=== PATIENT | female | born 1935 | race Caucasian/White ===

== ENCOUNTER 2016-12-07 19:05 | Emergency (ER) | payer MEDICARE, OTHER ==
[2016-12-07 18:25] LABS: ALLENS TEST Pos; BE (BASE EXCESS) 7.2 MEQ/L (0 +/- 2.5); HCO3 (ACTUAL BICARBONATE) 32.1 MEQ/L (23-27); INSTRUMENT SERIAL # 8087; PCO2 (CO2 TENSION) 46 MMHG (35-45); PO2 (O2 TENSION) 55 MMHG (79-93); SAMPLE Arterial; pH 7.46 (7.37-7.43)
[2016-12-07 18:37] LABS: BASOPHILS 0.2 %; BASOPHILS ABSOLUTE 0.02 10/3/uL (0.0-0.16); EOSINOPHILS 1.9 %; HEMATOCRIT 37.2 % (36.0-48.0); HEMOGLOBIN 11.3 g/dL (12.0-16.0); IMMATURE GRANULOCYTES 0.2 %; IMMATURE GRANULOCYTES ABSOLUTE 0.02 10/3/uL (0.0-0.11); LYMPHOCYTES 11.3 %; LYMPHOCYTES ABSOLUTE 1.19 10/3/uL (0.67-4.30); MEAN CORPUS HGB CONC 30.4 g/dL (32.0-36.0); MEAN CORPUSCULAR HEMOGLOB 21.7 pg (26.0-34.0); MEAN CORPUSCULAR VOLUME 71.5 fL (80-100); MEAN PLATELET VOLUME 8.8 fL (9.2-13.0); MONOCYTES 8.6 %; MONOCYTES ABSOLUTE 0.91 10/3/uL (0.21-1.20); NEUTROPHILS 77.8 %; NEUTROPHILS ABSOLUTE 8.23 10/3/uL (2.02-8.40); PLATELET COUNT 232 10/3/uL (150-400); RBC DISTRIBUTION WIDTH 18.5 % (12.0-16.0)
[2016-12-07 18:43] LABS: INTERNATIONAL NORMAL RATI 1.1 UNITS (-); PARTIAL THROMBO TIME 24.8 SEC (22.5-37.2); PROTIME (NOT ORD) 14.1 SEC (12.0-14.5)
[2016-12-07 18:44] LABS: ER CBC TAT 0 Hrs 13 Mins; MANUAL DIFF NO %; WHITE BLOOD CELLS 10.6 10/3/uL (4.5-10.5)
[2016-12-07 18:50] LABS: BUN (BLOOD UREA NITROGEN) 19 MG/DL (6-23); CHEST PAIN PROFILE TAT 0 Hrs 19 Mins; CHLORIDE, SERUM 102 MMOL/L (96-112); CO2 (CARBON DIOXIDE) 33 MMOL/L (24-34); CREATININE 0.97 MG/DL (0.55-1.02); GFR AFRICAN AMERICAN 63 ML/MIN (>=60); GFR NON AFRICAN AMERICAN 54 ML/MIN (>=60); POTASSIUM, SERUM 4.3 MMOL/L (3.5-5.3); SODIUM, SERUM 139 MMOL/L (135-148); TROPONIN I 0.04 NG/ML (<0.05)
[2016-12-07 18:52] LABS: GLUCOSE, SERUM 126 MG/DL (60-99)
[2016-12-07 19:01] LABS: ANISOCYTOSIS 1+ (5-10/OIF) (0-5/OIF); ELLIPTOCYTES 1+ (3-10/OIF) (0-2/OIF); PLATELET ESTIMATE ADQ (ADEQUATE)
[~2016-12-07 19:05] MED LIST: ACET500CAP PO; ARICEPT10 MG PO; ARICEPT10 PO; ARICEPT5 PO; ASAB PO; AT10 PO; ATV1 PO; BACDS PO; BISR PR; BUM2 PO; CEFT5 PO; CRESTOR20 MG PO; DCN100 PO; ENDOCET1 TAB PO; FENOGLIDE120 MG PO; FESO4UDL PO; FISH OIL1200 MG PO; FISH-EPA1000 MG PO; FLONASE NAS; FLORASTOR250 MG PO; FLUCON1 PO; GINKGO BILOB30 M1 PO; GLUCOSE; GLUCOTROL5 PO; GLUCPH PO; GLUCXL5 PO; H5P IM; HALF81 PO; HYDROXYZINE HCL PO; KLOR-CON M2020 MEQ PO; KLOR-CON20 MEQ PO; L40 PO; LEVAQUIN750 MG PO; LEVEMFLXPN SC; LEVEMIR SC; LEVOTHROID88 MCG PO; LEVOTHYROXIN88 MCG PO; LIPITOR40 PO; LISINOPRIL40 MG PO; LOFIBRA134 MG PO; MAX1 IM; MELATONIN5 M1 PO; MIRALAXPKT PO; MONISTAT 34 % VA; MONUROL POWDER 33 GM PO; MVIUDL PO; NAMENDA10 MG PO; NEXIUM40 PO; NORV10 PO; NORV25 PO; NYSTOP100000 MG TOP; OTC EYE DROP OPH; P20 PO; PREVAGEN PO; PRILO PO; PRIN10 PO; PROVIGIL2 PO; PYR200 PO; SEPTRA DS1 TAB PO; SEROQUEL50 MG PO; SYMBICORT INH; SYN88 PO; T PO; TESS; TRAZ100 PO; TRAZ50 PO; TRICOR145 PO; TRILIPIX135 MG PO; V2 PO; VICODINTAB PO; VITAMIN D31000 UNIT PO; X25 PO; X5 PO; XARELTO20 MG PO; XOPENEX HFA INH; ZETIA PO; ZOFRAN4 PO; ZYP5 PO; [UNRECOGNIZED DRUG - OTHER] PO; [UNRECOGNIZED DRUG - OTHER] PO
[2016-12-08] MEDS ORDERED: LEVEMFLXPN SC (23:44)
[2016-12-08] MEDS ORDERED: MELATONIN10 M2 PO (23:44)
[2016-12-08] MEDS ORDERED: MONODOX100 MG PO (23:45)
[2016-12-08] MEDS ORDERED: TRAZ100 PO (23:45)
[2016-12-08] MEDS ORDERED: AT10 PO (23:45)
[2016-12-08] MEDS ORDERED: TRILIPIX135 MG PO (23:45)
[2016-12-08] MEDS ORDERED: ATV.5 PO (23:46)
[2016-12-08] MEDS ORDERED: SYN88 PO (23:46)
[2016-12-08] MEDS ORDERED: PRILO PO (23:46)
[2016-12-08] MEDS ORDERED: NAMENDA10 MG PO (23:46)
[2016-12-08] MEDS ORDERED: L40 PO (23:46)
[2016-12-08] MEDS ORDERED: ARICEPT10 PO (23:47)
[2016-12-08] MEDS ORDERED: ADVAIR250 INH (23:47)
[2016-12-08] MEDS ORDERED: LIPITOR40 PO (23:47)
[2016-12-08] MEDS ORDERED: NORV10 PO (23:47)
[2016-12-08] MEDS ORDERED: GLUCOTROL5 PO (23:48)
[2016-12-08] MEDS ORDERED: ASAB PO (23:48)
== END 2016-12-07 19:54 | disposition home or self-care (01) ==
LOC: ER 19:05
PROVIDERS: Specialist
DX: J96.91 Respiratory failure, unspecified with hypoxia (principal); J44.9 Chronic obstructive pulmonary disease, unspecified; J40 Bronchitis, not specified as acute or chronic; Z87.891 Personal history of nicotine dependence; I10 Essential (primary) hypertension; G47.30 Sleep apnea, unspecified; Z86.73 Personal history of transient ischemic attack (TIA), and cerebral infarction without residual deficits; F03.90 Unspecified dementia, unspecified severity, without behavioral disturbance, psychotic disturbance, mood disturbance, and anxiety; E11.9 Type 2 diabetes mellitus without complications; D64.9 Anemia, unspecified; Z90.710 Acquired absence of both cervix and uterus; Z88.6 Allergy status to analgesic agent; Z88.0 Allergy status to penicillin; Z79.899 Other long term (current) drug therapy; Z79.84 Long term (current) use of oral hypoglycemic drugs; Z79.82 Long term (current) use of aspirin; Z79.4 Long term (current) use of insulin; Z79.52 Long term (current) use of systemic steroids
CPT/HCPCS: 36600; 71010; 80048; 82805; 83735; 83880; 84484; 85025; 85610; 85730; 93005; 94640; 96374; 99285; A9270-GY; J2920

== ENCOUNTER 2016-12-08 22:28 | Inpatient (IN) | payer MEDICARE, OTHER ==
--- NOTE | ~2016-12-08 | DS ---
Discharge Summary [facility] [address] [place]. [address] NAME: JOSE MARTIN STEVENS : 31 STATUS : ADM IN PAT#: [id number] AGE: 81 ADM/REG DATE : 12/09/16 MR#: [id number] REPORT SERV DATE: 12/21/16 DICTATED BY: Josemanuel LANDRY DATE: 12/21/16 REPORT STATUS : Draft TRANSCRIBED BY: MODL DATE: 12/21/16 ADMISSION DATE: 12/09/2016 DISCHARGE DATE: 12/21/2016 INTERIM SUMMARY DATE: 12/15/2016. COMPLETION SUMMARY DATE: 12/21/2016. DIAGNOSES AT TIME OF DISCHARGE: Acute on chronic respiratory failure with hypoxia and hypercapnia, suspected sleep apnea, suspected chronic obstructive pulmonary disease, advanced dementia, metabolic encephalopathy, resolved, insulin-requiring diabetes. CONSULTS: Pulmonology. PROCEDURES: None HOSPITAL COURSE: Continuing on with hospital course starting 12/16/2016. Unfortunately, despite diligent effort from Case Management and Pulmonology, we were unable to get her qualified through Home Health for BiPAP at home. When presented with the options of jail facility care versus home with hospice, her would far rather have her home with hospice for ongoing care than to be in a facility, based on his recommendations and her being at her baseline both from a mental status standpoint and a respiratory standpoint, we will involve hospice [facility], which is his choiced entity and once arrangements are made, she will transition home with her in the care of [facility]. Please see discharge MAR for details. Further adjustments in medications to be made by [facility]. DICTATED BY: Josemanuel Landry M.D. [facility]/BENITO Josemanuel Landry M.D. / [id number] CC: Josemanuel Landry M.D.
--- NOTE | ~2016-12-08 | DS ---
Discharge Summary [facility] [address] [place]. [address] NAME: JOSE MARTIN STEVENS : 31 STATUS : ADM IN [facility]#: [id number] AGE: 81 ADM/REG DATE : 12/09/16 MR#: [id number] REPORT SERV DATE: 12/15/16 DICTATED BY: Josemanuel MARCOS DATE: 12/15/16 REPORT STATUS : Draft TRANSCRIBED BY: MODL DATE: 12/15/16 ADMISSION DATE: 12/09/2016 DISCHARGE DATE: 12/15/2016 INTERIM SUMMARY: Date 12/15/2016. DIAGNOSES AT TIME OF INTERIM SUMMARY: [id number] respiratory failure with hypoxia and hypercapnia, sleep apnea, suspected chronic obstructive pulmonary disease; metabolic encephalopathy, acute; suspected pneumonia, present on admission; type 2 diabetes, advanced dementia. CONSULTS: Pulmonology. PROCEDURES: None. BRIEF SUMMARY: An 81-year-old female patient with advanced dementia was admitted with acute- on-chronic respiratory failure to the intermediate care unit, requiring BiPAP support. does state the patient is a do not intubate. The patient was treated with aggressive bronchodilator therapy and aggressive pulmonary toilet. There was no clear indication of infection on admission. She did receive brief course of antimicrobial therapy, but when labs and cultures were unremarkable, antimicrobial therapy was discontinued. We did get Palliative Care to see the patient, because she essentially has two end-stage processes, one is her dementia, the second is her lung disease. was in favor of do not resuscitate order, but was not yet ready for hospice, preferring to go home with Home Health Care with BiPAP support. At the time of this dictation, we are doing an overnight oximetry study in hopes that we can clarify and approve her for home BiPAP therapy. If she is unable to have BiPAP support at home, some consideration should be revisited with regard to discharge home with hospice unless she will prefer her to be managed at the facility. At the present time, she requires BiPAP intermittently and has intermittent bouts of agitation that do respond to her current medical therapy. Pulmonary has been extremely helpful and continue to monitor the patient daily and we have had ongoing input from Palliative Care regarding care planning. Another member of the hospitalist team will manage her hospital care starting 12/16/2016 with comanagement from Pulmonary and input from Palliative Care. Again, tonight is an overnight oximetry study. PLAN: 1. Home with BiPAP therapy and home health care support. 2. Would be to revisit hospice care, BiPAP can not be approved for home use. DICTATED BY: Josemanuel Marcos M.D. [facility]/BENITO Discharge Summary [address] [address] NAME: JOSE MARTIN STEVENS : 33 STATUS : ADM IN PAT#: [id number] AGE: 81 ADM/REG DATE : 12/09/16 MR#: [id number] REPORT SERV DATE: 12/15/16 DICTATED BY: Josemanuel MARCOS DATE: 12/15/16 REPORT STATUS : Draft TRANSCRIBED BY: BENITO DATE: 12/15/16 Josemanuel Marcos M.D. / [id number] CC: Judit Rdz M.D.
--- NOTE | ~2016-12-08 | CN ---
Consultation Report [facility] [address] [place]. [address] NAME: JOSE MARTIN MATOS : 33 STATUS : ADM IN [facility]#: [id number] AGE: 81 ADM/REG DATE : 12/09/16 MR#: [id number] REPORT SERV DATE: 12/09/16 DICTATED BY: HAILE SERRANO IV DATE: 12/09/16 REPORT STATUS : Draft TRANSCRIBED BY: BENITO DATE: 12/09/16 PULMONARY CONSULTATION NOTE DATE OF CONSULTATION: 12/09/2016 Critical care time seen is 10 o'clock to 10:45, forty-five minutes. REASON FOR REQUEST: Hypoxemic hypercapnic respiratory failure, now on BiPAP continuously with marked agitation. HISTORY OF PRESENT ILLNESS: History was obtained from the records. I called the who was not available and I called the family members; however, all phones went to [employer]ak[employer]. A message was left to contact the unit. Ms. Matos is an 81-year-old female with a history of cerebrovascular disease, diastolic heart failure, dementia, diabetes mellitus, hypothyroidism, past atrial myxoma, past loculated parapneumonic effusion, obstructive sleep apnea, noncompliant with CPAP, clinical COPD, who was admitted with increasing shortness of breath for 48 to 72 hours with now agitation and increased shortness of breath and moved to the ICU. The patient has had several hospitalizations in the past, none since 2014. By the records, the patient had several days of increasing shortness of breath with a nonproductive cough. There was no reports of fevers, chills, sweats, hemoptysis, or chest pain. She presented to the emergency room where a CT angiogram was obtained which demonstrated no evidence for pulmonary embolism with evidence for basilar scarring, not significantly changed from the 2015 study. The patient had initiation of bronchodilator medications, however, became very agitated and wild. She was placed on BiPAP and moved to the [facility]. Currently, the patient had received Ativan and is sedated on BiPAP therapy and in no distress. PULMONARY HISTORY: Remarkable for no documented history of asthma, however with clinical COPD. She has had pneumonia in the past with a complicated parapneumonic effusion on the right. She is a "remote smoker" though the amount of cigarette consumption is not documented. Immunization status is also not documented. PAST MEDICAL HISTORY: Remarkable for history of: 1. Cerebrovascular disease. 2. Diastolic heart failure. 3. Dementia. 4. Diabetes mellitus. Hypothyroidism. 5. Past atrial myxoma, status post resection. 6. Right parapneumonic effusion status post decortication. 7. Obstructive sleep apnea, noncompliant with CPAP. 8. Clinical COPD. 9. Remote DVT. 10.Dysphagia. Consultation Report [facility] [address] [place]. [address] NAME: JOSE MARTIN MATOS : 33 STATUS : ADM IN [facility]#: [id number] AGE: 81 ADM/REG DATE : 12/09/16 MR#: [id number] REPORT SERV DATE: 12/09/16 DICTATED BY: HAILE SERRANO IV DATE: 12/09/16 REPORT STATUS : Draft TRANSCRIBED BY: BENITO DATE: 12/09/16 SURGERIES: 1. Removal of myxoma from the right atrium. 2. Hysterectomy. 3. PEG and tracheostomies, both reversed. 4. Left carpal tunnel release. 5. Bilateral breast implants. 6. Right inguinal herniorrhaphy repair. 7. Right thoracoscopy with decortication. 8. Right foot surgery. ALLERGIES AND INTOLERANCES: Include nonsteroidal anti-inflammatories and penicillin. CURRENT MEDICATIONS: The patient is on Aricept 10 mg daily; aspirin 81 mg daily; Atarax 10 mg twice a day; Ativan 0.5 mg every 8 hours; Desyrel 100 mg at bedtime; Dulera two puffs twice a day; DuoNebs every 6 hours, Glucotrol before meals, before breakfast and supper; Lasix 40 mg daily; Levemir 22 units at bedtime; Lipitor 40 mg daily; Lofibra 160 mg at bedtime; Lovenox 40 mg subcu daily; melatonin 9 mg at bedtime; Namenda 10 mg twice a day; Norvasc 10 mg daily; level 1 insulin sliding scale; Protonix 40 mg daily; Solu-Medrol 20 mg q.12 hours; Synthroid 88 mcg daily; and doxycycline 100 mg twice a day. SOCIAL HISTORY: Remarkable for some type of tobacco use as above. The patient does drink wine and by report, continues to drink wine "at times." There is no history of illicit drug use. She is , lives with her , has 3 children. FAMILY HISTORY: Remarkable for mother with unspecified heart disease with most family members unknown because they still live in [place]. REVIEW OF SYSTEMS: 14-systems reviewed and pertinent positives as noted above. PHYSICAL EXAMINATION: GENERAL: This is an obese, elderly female, currently sedated though agitated when stimulated. VITAL SIGNS: Blood pressure is 155/68, temperature 97.4, heart rate is 72, respiratory rate is 20, and saturation 100% on 40% BiPAP. HEENT: The patient is normocephalic, atraumatic. Pupils do react to light. Nose and mouth are not examined because she is on BiPAP. NECK: Without any palpable lymphadenopathy or thyromegaly. CHEST: The patient has bilateral coarse inspiratory and expiratory rhonchi with a prolonged expiratory phase. There are some basilar inspiratory crackles. No true wheezes are noted. She has a sternotomy scar. CARDIOVASCULAR: Jugular venous pulsations are difficult to elicit. She has 1+ carotid upstrokes. No obvious bruit. She has a very distant slow S1, S2 with no clear murmur or S3. There is overlying respiratory noise. Peripheral pulses are diminished. ABDOMEN: Morbidly obese. Soft. There are hypoactive bowel sounds. There is no palpable hepatosplenomegaly or masses. Surgical scars are noted. Consultation Report [address] [place]. [address] NAME: JOSE MARTIN MATOS : 33 STATUS : ADM IN [facility]#: [id number] AGE: 81 ADM/REG DATE : 12/09/16 MR#: [id number] REPORT SERV DATE: 12/09/16 DICTATED BY: HAILE SERRANO IV DATE: 12/09/16 REPORT STATUS : Draft TRANSCRIBED BY: BENITO DATE: 12/09/16 EXTREMITIES: Demonstrate 2+ pitting edema. There is no cyanosis, clubbing, or palpable cords. NEUROLOGIC: The patient is stimulated and moves all extremities though easily becomes agitated and tries to push one away. LABORATORY DATA: Chest CT scan demonstrates postsurgical changes of sternotomy. She has a prominent cardiac silhouette. She has bibasilar scarring/atelectasis that does not appear to be significantly different than the 2015 study. No clear new infiltrate is noted. CBC: Hemoglobin 11, hematocrit 35.4, platelet count was 237,000, and white blood cell count is 10.1. The MCV and MCH are both low. INR is 1.2, PTT is 23.6. Chemistry: Sodium is 133, potassium 4.8, chloride 98, bicarbonate 30, BUN 31, and creatinine 1.14. Glucose of 206. BNP is 201. Troponin is 0.05. The blood gas, pH 7.36, pCO2 of 51, and pO2 of 91 on BiPAP. ASSESSMENT AND PLAN: 1. Respiratory. The patient has clinical COPD with probable exacerbation. Solu-Medrol will be given 40 mg q.12 hours. DuoNebs will be given q.4 hours with albuterol q.2 hours as needed. Dulera will be changed to budesonide 1 mg twice a day and Brovana unit dose twice a day. Chest x-ray will be obtained tomorrow. She will be given breaks off tomorrow as clinically tolerated. Blood gas will be obtained in the morning. The rate on the BiPAP was decreased to 10. We will add warm humidification if available. 2. Infectious disease. Procalcitonin level will be added to blood in the lab. We will change the doxycycline to ceftriaxone and azithromycin. There is no obvious pneumonic infiltrate. 3. Neurologic. Precedex will be given for sedation which is less likely to cause delirium and agitation. Haldol will be given as needed for breakthrough. Ativan will be made as needed for breakthrough in addition to that. With the alcohol use, thiamine will be given 200 mg daily. B12 and ammonia level will be obtained. 4. Renal/electrolytes. Maintenance IV will be changed to normal saline with the hyponatremia. Baseline urine osmolality and urine sodium will be obtained. Phosphate level will be added to blood in the lab. We will watch the patient's creatinine. 5. Gastrointestinal. We will change Protonix to IV. Liver panel will be obtained. 6. Endocrinologic. Synthroid will be changed to IV. Thyroid functions will be obtained. Insulin sliding scale will be continued. Levemir per hospitalist. 7. Cardiovascular. All of her antihypertensives are p.o., so hydralazine will be given as needed for blood pressure greater than 160. 8. Hematologic. Iron studies will be obtained with the microcytic parameters. Stools will be sent for Hemoccult. Lovenox will be continued for deep vein thrombosis prophylaxis. Thank you for consulting us. We will follow the patient with you. Critical care time seen 45 minutes. Consultation Report [facility] [id number] [place]. [address] NAME: JOSE MARTIN MATOS : 33 STATUS : ADM IN [facility]#: [id number] AGE: 81 ADM/REG DATE : 12/09/16 MR#: [id number] REPORT SERV DATE: 12/09/16 DICTATED BY: HAILE SERRANO IV DATE: 12/09/16 REPORT STATUS : Draft TRANSCRIBED BY: BENITO DATE: 12/09/16 [facility]/BENITO Haile Serrano IV, M.D. / [id number] CC: Yun Cantu M.D.
--- NOTE | ~2016-12-08 | PUL ---
[facility] [address] [place]. [address] NAME: JOSE MARTIN STEVENS : 33 STATUS : ADM IN PAT#: [id number] AGE: 81 ADM/REG DATE : 12/09/16 MR#: [id number] REPORT SERV DATE: 12/17/16 DICTATED BY: SETH CONTRERAS DATE: 12/17/16 REPORT STATUS : Draft TRANSCRIBED BY: BENITO DATE: 12/17/16 PULMONARY FUNCTION TEST Overnight oximetry performed on 3 L nasal cannula. Total valid sampling time was 6 hours 32 minutes and 40 seconds. Saturations were less than 88% for 5 minutes and 8 seconds. INTERPRETATION: Abnormal oximetry report while on 3 L nasal cannula. Consider oxygen titration study or sleep study. Clinical correlation is recommended. [place]/BENITO Seth Contreras M.D. / [id number] CC: Judit Rdz M.D.
--- NOTE | ~2016-12-08 | HP ---
History And Physical [address] [place]. [address] NAME: JOSE MARTIN STEVENS : 33 STATUS : ADM IN PAT#: [id number] AGE: 81 ADM/REG DATE : 12/09/16 MR#: [id number] REPORT SERV DATE: 12/09/16 DICTATED BY: DAYANNA OLSON DATE: 12/09/16 REPORT STATUS : Draft TRANSCRIBED BY: BENITO DATE: 12/09/16 DATE OF ADMISSION: 12/09/2016 CHIEF COMPLAINT: An 81-year-old female, presenting with shortness of breath. HISTORY OF PRESENT ILLNESS: The patient's history was obtained through careful interview with the patient and coupled with review of [facility] medical records. The patient for about a week now has been having increasing shortness of breath characterized by dyspnea on exertion and a nonproductive cough. It has really progressed in the last two or three days. She describes orthopnea, paroxysmal nocturnal dyspnea, and sinus drainage. Then tonight the patient became "wild," agitated, confused, and was gasping for breath as well. No chest pain. No abdominal pain. No headache. No back pain. No pain complaints at all. No nausea or vomiting. No fevers or chills. REVIEW OF SYSTEMS: Otherwise, a 14-point review of systems was obtained and was negative. PAST MEDICAL HISTORY: 1. Pneumonia. 2. Stroke with right-sided encephalomalacia. 3. Obstructive sleep apnea, but not on CPAP. 4. DVT right upper extremity after a right humerus fracture. 5. Dementia. 6. Diastolic congestive heart failure. Negative catheterization of the heart in 2003. 7. Depression. 8. Diabetes. 9. Anemia. 10.Hypothyroidism. 11.Pelvic fracture. 12.A loculated right effusion in 2013 needing surgery. 13.Urinary tract infection with incontinence. 14.Dysphagia with PEG tube and then reversal by Dr. Christiansen. 15.Atrial myxoma status post surgery. PAST SURGICAL HISTORY: 1. Myxoma removed from the atrium in 2003. 2. Hysterectomy. 3. PEG tube and tracheostomy since reversed. 4. Left carpal tunnel release. History And Physical [address] [address] NAME: JOSE MARTIN STEVENS : 33 STATUS : ADM IN PAT#: [id number] AGE: 81 ADM/REG DATE : 12/09/16 MR#: [id number] REPORT SERV DATE: 12/09/16 DICTATED BY: DAYANNA OLSON DATE: 12/09/16 REPORT STATUS : Draft TRANSCRIBED BY: BENITO DATE: 12/09/16 5. Right inguinal hernia repair. 6. Right thoracoscopy with decortication in 2013. 7. Right foot surgery. ALLERGIES: NONSTEROIDAL ANTI-INFLAMMATORY DRUGS, PENICILLIN. SOCIAL HISTORY: Quit smoking remotely. Drinks about two to three glasses of wine a night at times. Has been to her for 60 years. She immigrated from [place] in 5, has three children. She is seen by home health care. FAMILY HISTORY: Mother with heart disease. CURRENT MEDICATIONS: 1. Norvasc 10 mg p.o. daily. 2. Aspirin 81 mg p.o. daily. 3. Lipitor 40 mg p.o. daily. 4. Aricept 10 mg p.o. daily. 5. Doxycycline 100 mg p.o. b.i.d. 6. Trilipix 135 mg p.o. daily. 7. Advair inhale twice a day. 8. Lasix 40 mg p.o. daily. 9. Glipizide 5 mg p.o. b.i.d. 10.Atarax 10 mg p.o. b.i.d. 11.Levemir 22 units subcutaneous at bedtime. 12.Synthroid 88 mcg p.o. daily. 13.Ativan 0.5 mg p.o. b.i.d. 14.Melatonin 10 mg p.o. daily at nighttime. 15.Namenda 10 mg p.o. b.i.d. 16.Prilosec 20 mg p.o. daily. 17.Trazodone 100 mg p.o. q.h.s. PHYSICAL EXAMINATION: VITAL SIGNS: Temperature 98.2, pulse 86, blood pressure 121/63, respiratory rate 40, and O2 saturation 65% on room air. GENERAL: An ill-appearing female, in evidence of distress secondary to anxiety and shortness of breath. HEENT: Pupils equal, round, and reactive to light. No conjunctival pallor. No scleral icterus. Nares are patent. Oropharynx is clear of obstruction. Moist mucous membranes. NECK: Trachea midline. No thyromegaly. LYMPH: No cervical lymphadenopathy. No supraclavicular lymphadenopathy. RESPIRATORY: The patient has scattered wheezes on exam. Scattered rhonchi. No rales. No focal egophony. The patient has a labored respiratory effort. CARDIOVASCULAR: Regular rate and rhythm. No murmurs, rubs, or gallops. No extremity edema is currently appreciated. ABDOMEN: Soft, nontender, and nondistended. Normal bowel sounds auscultated throughout. No hepatosplenomegaly. DERMATOLOGICAL: Warm and dry extremities. No pallor. No cyanosis. History And Physical [address] [place]. [address] NAME: JOSE MARTIN STEVENS : 31 STATUS : ADM IN [facility]#: [id number] AGE: 81 ADM/REG DATE : 12/09/16 MR#: [id number] REPORT SERV DATE: 12/09/16 DICTATED BY: DAYANNA OLSON DATE: 12/09/16 REPORT STATUS : Draft TRANSCRIBED BY: BENITO DATE: 12/09/16 PSYCHIATRIC: Normal affect. Good mood. Alert and oriented x3. LABORATORY DATA: White blood cell count 10.1, hemoglobin 11, hematocrit 35, and platelets 237. Sodium 133, potassium 4.8, chloride 98, bicarb 30, BUN 31, creatinine 1.14, and glucose 206. Troponin 0.05. INR 1.2. STUDIES: 1. Chest x-ray by my own evaluation shows atelectasis changes, cardiomegaly. 2. CT angiogram of the chest shows no pulmonary embolism, no infiltrate. ASSESSMENT AND PLAN: 1. Hypoxic respiratory failure. Place on BiPAP until noon today. Provide supportive care. Negative pulmonary embolism on CT angiogram of the chest. 2. Chronic obstructive pulmonary disease exacerbation. Place on IV Solu-Medrol, Duo nebulizers, doxycycline. 3. Dementia with agitation, p.r.n. and scheduled Ativan. 4. Diabetes. Check hemoglobin A1c. Place on sliding scale insulin. [place]BY/BENITO Dayanna Olson M.D. / [id number] CC: Judit Dangelo M.D.
[2016-12-08 23:03] LABS: BASOPHILS 0.1 %; BASOPHILS ABSOLUTE 0.01 10/3/uL (0.0-0.16); EOSINOPHILS 0.2 %; EOSINOPHILS ABSOLUTE 0.02 10/3/uL (0.0-0.53); ER CBC TAT 0 Hrs 03 Mins; HEMATOCRIT 35.4 % (36.0-48.0); IMMATURE GRANULOCYTES 0.1 %; IMMATURE GRANULOCYTES ABSOLUTE 0.01 10/3/uL (0.0-0.11); LYMPHOCYTES 7.9 %; LYMPHOCYTES ABSOLUTE 0.79 10/3/uL (0.67-4.30); MEAN CORPUS HGB CONC 31.1 g/dL (32.0-36.0); MEAN CORPUSCULAR HEMOGLOB 22.2 pg (26.0-34.0); MEAN CORPUSCULAR VOLUME 71.5 fL (80-100); MONOCYTES 8.6 %; MONOCYTES ABSOLUTE 0.86 10/3/uL (0.21-1.20); NEUTROPHILS 83.1 %; NEUTROPHILS ABSOLUTE 8.36 10/3/uL (2.02-8.40); PLATELET COUNT 237 10/3/uL (150-400); RBC DISTRIBUTION WIDTH 18.1 % (12.0-16.0); RED CELL COUNT 4.95 10/6/uL (4.0-5.6); WHITE BLOOD CELLS 10.1 10/3/uL (4.5-10.5)
[2016-12-08 23:04] LABS: MANUAL DIFF NO %
[2016-12-08 23:09] LABS: INTERNATIONAL NORMAL RATI 1.2 UNITS (-); PARTIAL THROMBO TIME 23.6 SEC (22.5-37.2); PROTIME (NOT ORD) 14.7 SEC (12.0-14.5)
[2016-12-08 23:20] LABS: CALCIUM, SERUM 8.7 MG/DL (8.5-10.4); CHLORIDE, SERUM 98 MMOL/L (96-112); CO2 (CARBON DIOXIDE) 30 MMOL/L (24-34); CREATININE 1.14 MG/DL (0.55-1.02); GFR AFRICAN AMERICAN 51 ML/MIN (>=60); GFR NON AFRICAN AMERICAN 44 ML/MIN (>=60); POTASSIUM, SERUM 4.8 MMOL/L (3.5-5.3); SODIUM, SERUM 133 MMOL/L (135-148)
[2016-12-08 23:21] LABS: BUN (BLOOD UREA NITROGEN) 31 MG/DL (6-23); CHEST PAIN PROFILE TAT 0 Hrs 21 Mins; GLUCOSE, SERUM 206 MG/DL (60-99); TROPONIN I 0.05 NG/ML (<0.05)
[2016-12-08] MEDS ORDERED: MELATONIN10 M2 PO (23:44)
[2016-12-08] MEDS ORDERED: LEVEMFLXPN SC (23:44)
[2016-12-08] MEDS ORDERED: TRILIPIX135 MG PO (23:45)
[2016-12-08] MEDS ORDERED: TRAZ100 PO (23:45)
[2016-12-08] MEDS ORDERED: MONODOX100 MG PO (23:45)
[2016-12-08] MEDS ORDERED: AT10 PO (23:45)
[2016-12-08] MEDS ORDERED: SYN88 PO (23:46)
[2016-12-08] MEDS ORDERED: PRILO PO (23:46)
[2016-12-08] MEDS ORDERED: NAMENDA10 MG PO (23:46)
[2016-12-08] MEDS ORDERED: ATV.5 PO (23:46)
[2016-12-08] MEDS ORDERED: L40 PO (23:46)
[2016-12-08] MEDS ORDERED: NORV10 PO (23:47)
[2016-12-08] MEDS ORDERED: LIPITOR40 PO (23:47)
[2016-12-08] MEDS ORDERED: ADVAIR250 INH (23:47)
[2016-12-08] MEDS ORDERED: ARICEPT10 PO (23:47)
[2016-12-08] MEDS ORDERED: GLUCOTROL5 PO (23:48)
[2016-12-08] MEDS ORDERED: ASAB PO (23:48)
[2016-12-09 02:10] LABS: ALLENS TEST Pos; BE (BASE EXCESS) 2.1 MEQ/L (0 +/- 2.5); BIPAP 15/5 cm.H2O; HCO3 (ACTUAL BICARBONATE) 28.6 MEQ/L (23-27); INSTRUMENT SERIAL # 8087; OPERATOR ID 17589; PCO2 (CO2 TENSION) 51 MMHG (35-45); PO2 (O2 TENSION) 91 MMHG (79-93); SAMPLE Arterial; pH 7.36 (7.37-7.43)
[2016-12-09 11:43] LABS: BASOPHILS 0 %; EOSINOPHILS 0 %; HEMATOCRIT 35.3 % (36.0-48.0); HEMOGLOBIN 10.8 g/dL (12.0-16.0); IMMATURE GRANULOCYTES 0.4 %; IMMATURE GRANULOCYTES ABSOLUTE 0.03 10/3/uL (0.0-0.11); LYMPHOCYTES 5.6 %; LYMPHOCYTES ABSOLUTE 0.42 10/3/uL (0.67-4.30); MANUAL DIFF NO %; MEAN CORPUS HGB CONC 30.6 g/dL (32.0-36.0); MEAN CORPUSCULAR HEMOGLOB 21.6 pg (26.0-34.0); MEAN CORPUSCULAR VOLUME 70.7 fL (80-100); MEAN PLATELET VOLUME 8.9 fL (9.2-13.0); MONOCYTES 1.1 %; MONOCYTES ABSOLUTE 0.08 10/3/uL (0.21-1.20); NEUTROPHILS 92.9 %; NEUTROPHILS ABSOLUTE 6.91 10/3/uL (2.02-8.40); PLATELET COUNT 197 10/3/uL (150-400); RBC DISTRIBUTION WIDTH 18.3 % (12.0-16.0); RED CELL COUNT 4.99 10/6/uL (4.0-5.6); WHITE BLOOD CELLS 7.4 10/3/uL (4.5-10.5)
[2016-12-09 12:12] LABS: ANISOCYTOSIS 1+ (5-10/OIF) (0-5/OIF); PLATELET ESTIMATE ADQ (ADEQUATE)
[2016-12-09 12:15] LABS: POLYCHROMASIA 1+ (2-5/OIF) (0-1/OIF)
[2016-12-09 12:16] LABS: OVALOCYTES 1+ (3-10/OIF) (0-2/OIF)
[2016-12-09 12:23] LABS: ALBUMIN 3.1 G/DL (3.5-5.0); ALKALINE PHOSPHATASE 32 U/L (45-117); BUN (BLOOD UREA NITROGEN) 28 MG/DL (6-23); CALCIUM, SERUM 8.8 MG/DL (8.5-10.4); CHLORIDE, SERUM 103 MMOL/L (96-112); CO2 (CARBON DIOXIDE) 32 MMOL/L (24-34); CREATININE 1.01 MG/DL (0.55-1.02); DIRECT BILIRUBIN 0.1 MG/DL (0.0-0.4); FREE T4 1.19 NG/DL (0.76-1.46); GFR AFRICAN AMERICAN 60 ML/MIN (>=60); GFR NON AFRICAN AMERICAN 51 ML/MIN (>=60); GLUCOSE, SERUM 173 MG/DL (60-99); INDIRECT BILIRUBIN(NOT ORDER) 0.7 MG/DL (0.1-0.9); IRON, SERUM 17 MCG/DL (35-150); POTASSIUM, SERUM 4.7 MMOL/L (3.5-5.3); SGOT(AST) 28 U/L (5-40); SGPT(ALT) 38 U/L (5-65); SODIUM, SERUM 139 MMOL/L (135-148); TOTAL PROTEIN 6.7 G/DL (6.0-8.5)
[2016-12-09 12:26] LABS: A/G RATIO 0.9 (0.7-1.9); GLOBULIN 3.6 G/DL (2.5-4.1); PHOSPHORUS, SERUM 3.4 MG/DL (2.5-4.5); TOTAL BILIRUBIN 0.8 MG/DL (0-1.2)
[2016-12-09 12:54] LABS: IRON BINDING CAPACITY 518 MCG/DL (225-410)
[2016-12-09 13:05] LABS: ULTRASENSITIVE TSH 0.801 MCIU/ML (0.358-3.740)
[2016-12-09 13:23] LABS: TROPONIN I 0.04 NG/ML (<0.05)
[2016-12-09 15:39] LABS: INTERNATIONAL NORMAL RATI 1.1 UNITS (-); PROTIME (NOT ORD) 14.5 SEC (12.0-14.5)
[2016-12-09 15:39] LABS: SODIUM, URINE 20 MEQ/L
[2016-12-09 15:42] LABS: PROCALCITONIN 0.08 ng/mL (<0.5)
[2016-12-09 15:45] LABS: OSMOLALITY, URINE 287 MOSM/KG (50-1200)
[2016-12-10 04:17] LABS: INSTRUMENT SERIAL # 8083; PCO2 (CO2 TENSION) 44 MMHG (35-45); PO2 (O2 TENSION) 91 MMHG (79-93)
[2016-12-10 04:18] LABS: ALLENS TEST Pos; BE (BASE EXCESS) 1.8 MEQ/L (0 +/- 2.5); BIPAP 16/6 cm.H2O; CARBOXYHEMOGLOBIN 0.9 % (0-3); HCO3 (ACTUAL BICARBONATE) 26.8 MEQ/L (23-27); HEMOBLOGIN CONTENT 11.5 G/DL (12-16); METHEMOGLOBIN 0.3 % (0-3); O2 CONTENT 15.6 VOL% (18-24); OPERATOR ID 32193; SAMPLE Arterial
[2016-12-10 07:12] LABS: BASOPHILS 0 %; EOSINOPHILS 0 %; HEMATOCRIT 35.8 % (36.0-48.0); HEMOGLOBIN 10.9 g/dL (12.0-16.0); IMMATURE GRANULOCYTES 0.1 %; IMMATURE GRANULOCYTES ABSOLUTE 0.01 10/3/uL (0.0-0.11); LYMPHOCYTES 6.9 %; LYMPHOCYTES ABSOLUTE 0.52 10/3/uL (0.67-4.30); MEAN CORPUS HGB CONC 30.4 g/dL (32.0-36.0); MEAN CORPUSCULAR HEMOGLOB 21.7 pg (26.0-34.0); MEAN CORPUSCULAR VOLUME 71.2 fL (80-100); MEAN PLATELET VOLUME 9.5 fL (9.2-13.0); MONOCYTES 4.7 %; MONOCYTES ABSOLUTE 0.35 10/3/uL (0.21-1.20); NEUTROPHILS 88.3 %; NEUTROPHILS ABSOLUTE 6.61 10/3/uL (2.02-8.40); PLATELET COUNT 199 10/3/uL (150-400); RBC DISTRIBUTION WIDTH 18.5 % (12.0-16.0); RED CELL COUNT 5.03 10/6/uL (4.0-5.6); WHITE BLOOD CELLS 7.5 10/3/uL (4.5-10.5)
[2016-12-10 07:22] LABS: MANUAL DIFF NO %
[2016-12-10 07:32] LABS: ALBUMIN 2.8 G/DL (3.5-5.0); BUN (BLOOD UREA NITROGEN) 25 MG/DL (6-23); CALCIUM, SERUM 8.8 MG/DL (8.5-10.4); CHLORIDE, SERUM 107 MMOL/L (96-112); CO2 (CARBON DIOXIDE) 29 MMOL/L (24-34); GFR AFRICAN AMERICAN 79 ML/MIN (>=60); GFR NON AFRICAN AMERICAN 68 ML/MIN (>=60); GLUCOSE, SERUM 188 MG/DL (60-99); PHOSPHORUS, SERUM 2.9 MG/DL (2.5-4.5); POTASSIUM, SERUM 4.3 MMOL/L (3.5-5.3); SODIUM, SERUM 143 MMOL/L (135-148)
[2016-12-10 07:40] LABS: ANISOCYTOSIS 1+ (5-10/OIF) (0-5/OIF); ELLIPTOCYTES 1+ (3-10/OIF) (0-2/OIF); PLATELET ESTIMATE ADQ (ADEQUATE)
[2016-12-11 04:45] LABS: BASOPHILS 0 %; EOSINOPHILS 0.1 %; EOSINOPHILS ABSOLUTE 0.01 10/3/uL (0.0-0.53); HEMATOCRIT 35.1 % (36.0-48.0); HEMOGLOBIN 10.8 g/dL (12.0-16.0); IMMATURE GRANULOCYTES 0.2 %; IMMATURE GRANULOCYTES ABSOLUTE 0.02 10/3/uL (0.0-0.11); LYMPHOCYTES 15.6 %; LYMPHOCYTES ABSOLUTE 1.27 10/3/uL (0.67-4.30); MEAN CORPUS HGB CONC 30.8 g/dL (32.0-36.0); MEAN CORPUSCULAR HEMOGLOB 21.9 pg (26.0-34.0); MEAN CORPUSCULAR VOLUME 71.2 fL (80-100); MEAN PLATELET VOLUME 9.3 fL (9.2-13.0); MONOCYTES ABSOLUTE 0.57 10/3/uL (0.21-1.20); NEUTROPHILS 77.1 %; NEUTROPHILS ABSOLUTE 6.27 10/3/uL (2.02-8.40); PLATELET COUNT 211 10/3/uL (150-400); RBC DISTRIBUTION WIDTH 18.5 % (12.0-16.0); RED CELL COUNT 4.93 10/6/uL (4.0-5.6); WHITE BLOOD CELLS 8.1 10/3/uL (4.5-10.5)
[2016-12-11 04:47] LABS: MANUAL DIFF NO %
[2016-12-11 04:51] LABS: BUN (BLOOD UREA NITROGEN) 27 MG/DL (6-23); CHLORIDE, SERUM 107 MMOL/L (96-112); CO2 (CARBON DIOXIDE) 26 MMOL/L (24-34); CREATININE 0.88 MG/DL (0.55-1.02); GFR AFRICAN AMERICAN 70 ML/MIN (>=60); GFR NON AFRICAN AMERICAN 61 ML/MIN (>=60); SODIUM, SERUM 141 MMOL/L (135-148)
[2016-12-11 04:55] LABS: GLUCOSE, SERUM 135 MG/DL (60-99); POTASSIUM, SERUM 4.2 MMOL/L (3.5-5.3)
[2016-12-11 05:06] LABS: ANISOCYTOSIS 1+ (5-10/OIF) (0-5/OIF); PLATELET ESTIMATE ADQ (ADEQUATE)
[2016-12-11 05:07] LABS: POIKILOCYTOSIS 1+ (5-10/OIF) (0-5/OIF)
[2016-12-11 05:08] LABS: BURR CELLS 1+ (3-10/OIF) (0-2/OIF)
[2016-12-12 04:36] LABS: BASOPHILS 0.1 %; BASOPHILS ABSOLUTE 0.01 10/3/uL (0.0-0.16); EOSINOPHILS 0.4 %; EOSINOPHILS ABSOLUTE 0.03 10/3/uL (0.0-0.53); HEMATOCRIT 36.2 % (36.0-48.0); IMMATURE GRANULOCYTES 0.1 %; IMMATURE GRANULOCYTES ABSOLUTE 0.01 10/3/uL (0.0-0.11); LYMPHOCYTES ABSOLUTE 1.49 10/3/uL (0.67-4.30); MEAN CORPUS HGB CONC 30.4 g/dL (32.0-36.0); MEAN CORPUSCULAR HEMOGLOB 21.6 pg (26.0-34.0); MEAN CORPUSCULAR VOLUME 71.1 fL (80-100); MEAN PLATELET VOLUME 8.6 fL (9.2-13.0); MONOCYTES 7.4 %; MONOCYTES ABSOLUTE 0.58 10/3/uL (0.21-1.20); NEUTROPHILS ABSOLUTE 5.71 10/3/uL (2.02-8.40); PLATELET COUNT 181 10/3/uL (150-400); RBC DISTRIBUTION WIDTH 18.1 % (12.0-16.0); RED CELL COUNT 5.09 10/6/uL (4.0-5.6); WHITE BLOOD CELLS 7.8 10/3/uL (4.5-10.5)
[2016-12-12 04:37] LABS: MANUAL DIFF NO %
[2016-12-12 04:47] LABS: BUN (BLOOD UREA NITROGEN) 22 MG/DL (6-23); CALCIUM, SERUM 8.7 MG/DL (8.5-10.4); CHLORIDE, SERUM 104 MMOL/L (96-112); CO2 (CARBON DIOXIDE) 29 MMOL/L (24-34); CREATININE 0.81 MG/DL (0.55-1.02); GFR AFRICAN AMERICAN 78 ML/MIN (>=60); GFR NON AFRICAN AMERICAN 67 ML/MIN (>=60); GLUCOSE, SERUM 79 MG/DL (60-99); PHOSPHORUS, SERUM 2.9 MG/DL (2.5-4.5); POTASSIUM, SERUM 3.6 MMOL/L (3.5-5.3); SODIUM, SERUM 141 MMOL/L (135-148)
[2016-12-12 05:02] LABS: ANISOCYTOSIS 1+ (5-10/OIF) (0-5/OIF); PLATELET ESTIMATE ADQ (ADEQUATE)
[2016-12-12 05:03] LABS: ELLIPTOCYTES 1+ (3-10/OIF) (0-2/OIF); POIKILOCYTOSIS 1+ (5-10/OIF) (0-5/OIF)
[2016-12-12 20:31] LABS: ALLENS TEST Pos; BE (BASE EXCESS) -3.2 MEQ/L (0 +/- 2.5); BIPAP 16/6 cm.H2O; CARBOXYHEMOGLOBIN 0.7 % (0-3); HEMOBLOGIN CONTENT 12.3 G/DL (12-16); INSTRUMENT SERIAL # 8083; METHEMOGLOBIN 0.3 % (0-3); O2 CONTENT 17.7 VOL% (18-24); OPERATOR ID 35390; PCO2 (CO2 TENSION) 40 MMHG (35-45); PO2 (O2 TENSION) 248 MMHG (79-93); SAMPLE Arterial; pH 7.36 (7.37-7.43)
[2016-12-13 04:18] LABS: BASOPHILS 0 %; EOSINOPHILS 0.3 %; EOSINOPHILS ABSOLUTE 0.03 10/3/uL (0.0-0.53); HEMOGLOBIN 10.8 g/dL (12.0-16.0); IMMATURE GRANULOCYTES 0.2 %; IMMATURE GRANULOCYTES ABSOLUTE 0.02 10/3/uL (0.0-0.11); LYMPHOCYTES 11.6 %; LYMPHOCYTES ABSOLUTE 1.22 10/3/uL (0.67-4.30); MEAN CORPUS HGB CONC 30.9 g/dL (32.0-36.0); MEAN CORPUSCULAR VOLUME 71.1 fL (80-100); MONOCYTES 8.8 %; MONOCYTES ABSOLUTE 0.92 10/3/uL (0.21-1.20); NEUTROPHILS 79.1 %; NEUTROPHILS ABSOLUTE 8.32 10/3/uL (2.02-8.40); PLATELET COUNT 183 10/3/uL (150-400); RED CELL COUNT 4.92 10/6/uL (4.0-5.6); WHITE BLOOD CELLS 10.5 10/3/uL (4.5-10.5)
[2016-12-13 04:19] LABS: MANUAL DIFF NO %
[2016-12-13 04:32] LABS: CALCIUM, SERUM 8.5 MG/DL (8.5-10.4); CHLORIDE, SERUM 103 MMOL/L (96-112); CO2 (CARBON DIOXIDE) 29 MMOL/L (24-34); CREATININE 1.06 MG/DL (0.55-1.02); GFR AFRICAN AMERICAN 56 ML/MIN (>=60); GFR NON AFRICAN AMERICAN 49 ML/MIN (>=60); SODIUM, SERUM 138 MMOL/L (135-148)
[2016-12-13 04:37] LABS: ANISOCYTOSIS 1+ (5-10/OIF) (0-5/OIF); ELLIPTOCYTES 1+ (3-10/OIF) (0-2/OIF); PLATELET ESTIMATE ADQ (ADEQUATE)
[2016-12-13 04:40] LABS: BUN (BLOOD UREA NITROGEN) 32 MG/DL (6-23); GLUCOSE, SERUM 63 MG/DL (60-99)
[2016-12-13 14:22] LABS: ALLENS TEST Pos; BE (BASE EXCESS) 3.4 MEQ/L (0 +/- 2.5); CARBOXYHEMOGLOBIN 0.8 % (0-3); DEVICE NC; HCO3 (ACTUAL BICARBONATE) 29.3 MEQ/L (23-27); HEMOBLOGIN CONTENT 11.7 G/DL (12-16); INSTRUMENT SERIAL # 8083; METHEMOGLOBIN 0.2 % (0-3); O2 CONTENT 15.4 VOL% (18-24); OPERATOR ID 32199; PCO2 (CO2 TENSION) 51 MMHG (35-45); PO2 (O2 TENSION) 78 MMHG (79-93); SAMPLE Arterial; pH 7.38 (7.37-7.43)
[2016-12-14 05:05] LABS: BASOPHILS 0 %; EOSINOPHILS 0.1 %; EOSINOPHILS ABSOLUTE 0.01 10/3/uL (0.0-0.53); HEMATOCRIT 33.8 % (36.0-48.0); HEMOGLOBIN 10.4 g/dL (12.0-16.0); IMMATURE GRANULOCYTES 0.1 %; IMMATURE GRANULOCYTES ABSOLUTE 0.01 10/3/uL (0.0-0.11); LYMPHOCYTES 13.9 %; LYMPHOCYTES ABSOLUTE 1.18 10/3/uL (0.67-4.30); MEAN CORPUS HGB CONC 30.8 g/dL (32.0-36.0); MEAN CORPUSCULAR HEMOGLOB 21.8 pg (26.0-34.0); MEAN CORPUSCULAR VOLUME 70.7 fL (80-100); MEAN PLATELET VOLUME 9.3 fL (9.2-13.0); MONOCYTES 10.1 %; MONOCYTES ABSOLUTE 0.86 10/3/uL (0.21-1.20); NEUTROPHILS 75.8 %; NEUTROPHILS ABSOLUTE 6.42 10/3/uL (2.02-8.40); PLATELET COUNT 183 10/3/uL (150-400); RBC DISTRIBUTION WIDTH 18.1 % (12.0-16.0); RED CELL COUNT 4.78 10/6/uL (4.0-5.6); WHITE BLOOD CELLS 8.5 10/3/uL (4.5-10.5)
[2016-12-14 05:08] LABS: BUN (BLOOD UREA NITROGEN) 24 MG/DL (6-23); CALCIUM, SERUM 8.8 MG/DL (8.5-10.4); CHLORIDE, SERUM 106 MMOL/L (96-112); CO2 (CARBON DIOXIDE) 33 MMOL/L (24-34); CREATININE 0.77 MG/DL (0.55-1.02); GFR AFRICAN AMERICAN 83 ML/MIN (>=60); GFR NON AFRICAN AMERICAN 71 ML/MIN (>=60); GLUCOSE, SERUM 68 MG/DL (60-99); MANUAL DIFF NO %; PHOSPHORUS, SERUM 2.7 MG/DL (2.5-4.5); POTASSIUM, SERUM 3.5 MMOL/L (3.5-5.3); SODIUM, SERUM 145 MMOL/L (135-148)
[2016-12-14 05:26] LABS: ANISOCYTOSIS 1+ (5-10/OIF) (0-5/OIF); HYPOCHROMIA 1+ (3-10/OIF) (0-2/OIF); PLATELET ESTIMATE ADQ (ADEQUATE)
[2016-12-14 05:27] LABS: ELLIPTOCYTES 1+ (3-10/OIF) (0-2/OIF)
[2016-12-15 04:37] LABS: BUN (BLOOD UREA NITROGEN) 27 MG/DL (6-23); CHLORIDE, SERUM 107 MMOL/L (96-112); CO2 (CARBON DIOXIDE) 32 MMOL/L (24-34); CREATININE 1.03 MG/DL (0.55-1.02); GFR AFRICAN AMERICAN 58 ML/MIN (>=60); GFR NON AFRICAN AMERICAN 50 ML/MIN (>=60); POTASSIUM, SERUM 3.8 MMOL/L (3.5-5.3); SODIUM, SERUM 144 MMOL/L (135-148)
[2016-12-15 04:38] LABS: GLUCOSE, SERUM 101 MG/DL (60-99)
[2016-12-16 05:41] LABS: BE (BASE EXCESS) 5.7 MEQ/L (0 +/- 2.5); INSTRUMENT SERIAL # 8083; PCO2 (CO2 TENSION) 48 MMHG (35-45); PO2 (O2 TENSION) 67 MMHG (79-93); pH 7.43 (7.37-7.43)
[2016-12-16 05:42] LABS: ALLENS TEST Pos; CARBOXYHEMOGLOBIN 0.4 % (0-3); DEVICE NC; HEMOBLOGIN CONTENT 11.3 G/DL (12-16); METHEMOGLOBIN 0.3 % (0-3); O2 CONTENT 14.6 VOL% (18-24); OPERATOR ID 31061; SAMPLE Arterial
[2016-12-16 06:34] LABS: BASOPHILS 0.1 %; BASOPHILS ABSOLUTE 0.01 10/3/uL (0.0-0.16); EOSINOPHILS ABSOLUTE 0.54 10/3/uL (0.0-0.53); HEMATOCRIT 34.3 % (36.0-48.0); HEMOGLOBIN 10.4 g/dL (12.0-16.0); IMMATURE GRANULOCYTES 0.3 %; IMMATURE GRANULOCYTES ABSOLUTE 0.02 10/3/uL (0.0-0.11); LYMPHOCYTES 19.6 %; LYMPHOCYTES ABSOLUTE 1.52 10/3/uL (0.67-4.30); MEAN CORPUS HGB CONC 30.3 g/dL (32.0-36.0); MEAN CORPUSCULAR HEMOGLOB 21.7 pg (26.0-34.0); MEAN CORPUSCULAR VOLUME 71.6 fL (80-100); MEAN PLATELET VOLUME 9.6 fL (9.2-13.0); NEUTROPHILS ABSOLUTE 4.96 10/3/uL (2.02-8.40); PLATELET COUNT 178 10/3/uL (150-400); RBC DISTRIBUTION WIDTH 18.6 % (12.0-16.0); RED CELL COUNT 4.79 10/6/uL (4.0-5.6); WHITE BLOOD CELLS 7.8 10/3/uL (4.5-10.5)
[2016-12-16 06:40] LABS: MANUAL DIFF NO %
[2016-12-16 06:43] LABS: BUN (BLOOD UREA NITROGEN) 27 MG/DL (6-23); CALCIUM, SERUM 8.9 MG/DL (8.5-10.4); CHLORIDE, SERUM 110 MMOL/L (96-112); CO2 (CARBON DIOXIDE) 33 MMOL/L (24-34); CREATININE 0.96 MG/DL (0.55-1.02); GFR AFRICAN AMERICAN 63 ML/MIN (>=60); GFR NON AFRICAN AMERICAN 55 ML/MIN (>=60); POTASSIUM, SERUM 3.6 MMOL/L (3.5-5.3)
[2016-12-16 06:44] LABS: GLUCOSE, SERUM 73 MG/DL (60-99); SODIUM, SERUM 134 MMOL/L (135-148)
[2016-12-16 08:30] LABS: ANISOCYTOSIS 1+ (5-10/OIF) (0-5/OIF); PLATELET ESTIMATE ADQ (ADEQUATE)
[2016-12-16 08:31] LABS: POIKILOCYTOSIS 1+ (5-10/OIF) (0-5/OIF)
[2016-12-16 08:32] LABS: ELLIPTOCYTES 1+ (3-10/OIF) (0-2/OIF)
[2016-12-17 06:56] LABS: BUN (BLOOD UREA NITROGEN) 25 MG/DL (6-23); CALCIUM, SERUM 9.2 MG/DL (8.5-10.4); CHLORIDE, SERUM 106 MMOL/L (96-112); CO2 (CARBON DIOXIDE) 33 MMOL/L (24-34); CREATININE 0.95 MG/DL (0.55-1.02); GFR AFRICAN AMERICAN 64 ML/MIN (>=60); GFR NON AFRICAN AMERICAN 55 ML/MIN (>=60); GLUCOSE, SERUM 60 MG/DL (60-99); POTASSIUM, SERUM 3.7 MMOL/L (3.5-5.3); SODIUM, SERUM 142 MMOL/L (135-148)
[2016-12-18 05:40] LABS: CALCIUM, SERUM 9.2 MG/DL (8.5-10.4); CHLORIDE, SERUM 102 MMOL/L (96-112); CO2 (CARBON DIOXIDE) 29 MMOL/L (24-34); CREATININE 1.01 MG/DL (0.55-1.02); GFR AFRICAN AMERICAN 60 ML/MIN (>=60); GFR NON AFRICAN AMERICAN 51 ML/MIN (>=60); POTASSIUM, SERUM 3.5 MMOL/L (3.5-5.3); SODIUM, SERUM 140 MMOL/L (135-148)
[2016-12-18 05:42] LABS: BUN (BLOOD UREA NITROGEN) 21 MG/DL (6-23); GLUCOSE, SERUM 49 MG/DL (60-99)
[2016-12-18 06:42] LABS: T PROTEIN (ELECT)(NOT OR 5.1 G/DL (6.0-8.5)
[2016-12-19 06:08] LABS: BUN (BLOOD UREA NITROGEN) 16 MG/DL (6-23); CALCIUM, SERUM 8.9 MG/DL (8.5-10.4); CHLORIDE, SERUM 102 MMOL/L (96-112); CO2 (CARBON DIOXIDE) 31 MMOL/L (24-34); CREATININE 0.94 MG/DL (0.55-1.02); GFR AFRICAN AMERICAN 65 ML/MIN (>=60); GFR NON AFRICAN AMERICAN 56 ML/MIN (>=60); GLUCOSE, SERUM 85 MG/DL (60-99); POTASSIUM, SERUM 3.2 MMOL/L (3.5-5.3); SODIUM, SERUM 137 MMOL/L (135-148)
[2016-12-19 10:51] LABS: A/G 1.08 RATIO (0.9-2.10); ALBUMIN (ELECTRO) 2.65 GM/DL (3.2-5.5); ALPHA 1 (ELECTRO) 0.21 GM/DL (0.1-0.4); ALPHA 1 RELAT % (NOT ORD) 4.2 % (1.0-4.0); ALPHA 2 (ELECTRO) 0.83 GM/DL (0.5-1.10); ALPHA 2 RELAT % 16.2 % (4.5-26.0); BETA GLOBULIN (SPE) 0.82 GM/DL (0.60-1.30); GAMMA GLOBULIN (SPE) 0.59 G/DL (0.70-1.60); GAMMA RELAT % 11.6 % (6.0-22.0)
[2016-12-20 07:24] LABS: BASOPHILS 0.2 %; BASOPHILS ABSOLUTE 0.02 10/3/uL (0.0-0.16); EOSINOPHILS 4.9 %; EOSINOPHILS ABSOLUTE 0.41 10/3/uL (0.0-0.53); HEMATOCRIT 35.8 % (36.0-48.0); IMMATURE GRANULOCYTES 0.4 %; IMMATURE GRANULOCYTES ABSOLUTE 0.03 10/3/uL (0.0-0.11); LYMPHOCYTES 12.4 %; LYMPHOCYTES ABSOLUTE 1.03 10/3/uL (0.67-4.30); MEAN CORPUS HGB CONC 30.7 g/dL (32.0-36.0); MEAN CORPUSCULAR HEMOGLOB 21.9 pg (26.0-34.0); MEAN CORPUSCULAR VOLUME 71.3 fL (80-100); MEAN PLATELET VOLUME 8.9 fL (9.2-13.0); MONOCYTES 9.4 %; MONOCYTES ABSOLUTE 0.78 10/3/uL (0.21-1.20); NEUTROPHILS 72.7 %; NEUTROPHILS ABSOLUTE 6.05 10/3/uL (2.02-8.40); PLATELET COUNT 171 10/3/uL (150-400); RBC DISTRIBUTION WIDTH 18.8 % (12.0-16.0); RED CELL COUNT 5.02 10/6/uL (4.0-5.6); WHITE BLOOD CELLS 8.3 10/3/uL (4.5-10.5)
[2016-12-20 07:26] LABS: MANUAL DIFF NO %
[2016-12-20 07:37] LABS: BUN (BLOOD UREA NITROGEN) 13 MG/DL (6-23); CALCIUM, SERUM 8.8 MG/DL (8.5-10.4); CHLORIDE, SERUM 103 MMOL/L (96-112); CO2 (CARBON DIOXIDE) 31 MMOL/L (24-34); CREATININE 1.03 MG/DL (0.55-1.02); GFR AFRICAN AMERICAN 58 ML/MIN (>=60); GFR NON AFRICAN AMERICAN 50 ML/MIN (>=60); GLUCOSE, SERUM 77 MG/DL (60-99); PHOSPHORUS, SERUM 2.4 MG/DL (2.5-4.5); POTASSIUM, SERUM 3.8 MMOL/L (3.5-5.3); SODIUM, SERUM 141 MMOL/L (135-148)
[2016-12-20 08:08] LABS: ANISOCYTOSIS 1+ (5-10/OIF) (0-5/OIF); PLATELET ESTIMATE ADQ (ADEQUATE); RBC MORPHOLOGY ABN (NORMAL)
== END 2016-12-21 18:11 | disposition hospice, home (50) | DRG 189 ==
LOC: ER 22:28 → 7NO 12-09 04:35 → IMCU 12-09 07:57 → 7NO 12-09 08:10 → IMCU 12-09 08:46
PROVIDERS: Emergency Medicine; Family Medicine; Hospitalist; Internal Medicine; Internal Medicine Critical Care Medicine
PROC: 5A09457 Assistance with Respiratory Ventilation, 24-96 Consecutive Hours, Continuous Positive Airway Pressure (ICD-10-PCS; principal; 2016-12-10)
DX: J96.21 Acute and chronic respiratory failure with hypoxia (principal); J18.9 Pneumonia, unspecified organism; G93.41 Metabolic encephalopathy; J44.1 Chronic obstructive pulmonary disease with (acute) exacerbation; J44.0 Chronic obstructive pulmonary disease with (acute) lower respiratory infection; Z51.5 Encounter for palliative care; E11.9 Type 2 diabetes mellitus without complications; F03.90 Unspecified dementia, unspecified severity, without behavioral disturbance, psychotic disturbance, mood disturbance, and anxiety; J96.22 Acute and chronic respiratory failure with hypercapnia; Z87.891 Personal history of nicotine dependence; Z90.710 Acquired absence of both cervix and uterus; Z88.6 Allergy status to analgesic agent; Z88.0 Allergy status to penicillin; Z79.899 Other long term (current) drug therapy; Z79.82 Long term (current) use of aspirin; Z79.4 Long term (current) use of insulin
CPT/HCPCS: 36600; 71010; 71275; 80048; 80053; 80069; 80076; 82140; 82330; 82607; 82803; 82805; 82947; 82962; 83036; 83540; 83550; 83605; 83735; 83880; 83935; 84100; 84132; 84145; 84155; 84165; 84295; 84300; 84439; 84443; 84484; 85014; 85025; 85610; 85730; 87449; 87641; 93005; 94640; 94660; 94762; 96374; 96375; 97110-GP; 97162-GP; 97164-GP; 97530-GP; 99285; A9270-GY; C9113; G0463; G8978-CL-GP; G8978-CM-GP; G8979-CK-GP; J0360; J0456; J1630; J1956; J2405; J2920; J2930; J3411; J3486; Q9967